=== PATIENT | female | born 1960 | race American Indian/Alaskan Native ===

== ENCOUNTER 2018-04-19 11:26 | Emergency (ER) | payer OTHER ==
[2018-04-19] MEDS ORDERED: MAGNESIUM SULFATE 2GM/50ML 2 GM/50 ML BAG IV ONE (11:33)
[2018-04-19] MEDS ORDERED: ATROVENT IH ONE ×2 (11:35→13:21)
[2018-04-19] MEDS ORDERED: PROVENTIL IH ONE ×2 (11:35→13:21)
[2018-04-19] MEDS ORDERED: ZOFRAN IV ONE (11:37)
[2018-04-19] MEDS ORDERED: SUBLIMAZE IV ONE (11:37)
--- NOTE | 2018-04-19 11:40 | Emergency Department Report ---
HPI - General Chief Complaint: Dyspnea/Respdistress Time Seen by Provider: 04/19/18 11:32 - HPI HPI: Room 22 The patient is a 57-year-old female presenting with a chief complaint of chest pain and shortness of breath. The patient she was pain home for 2 hours which believes the fumes exacerbated her asthma. The patient states she became short of breath and developed chest tightness. The patient admits to nausea but denies vomiting. The patient gives her pain a score of 10/10 Location: Lungs, chest Duration: Just prior to arrival Quality: Tightness/shortness of breath Severity: 10/10 Modifying factors: [see above] Context: [see above] Mode of transportation: [not driving] ED Past Medical Hx - Past Medical History Previous Medical History?: Yes Hx Hypertension: Yes Hx Asthma: Yes - Surgical History Past Surgical History?: Yes Additional Surgical History: Brain surgery- Cerebral aneurysm repair - Family History Family history: no significant - Social History Smoking Status: Never Smoker Substance Use Type: None - Medications Home Medications: Home Medications Medication Instructions Recorded Confirmed Last Taken Type Cyclobenzaprine [Flexeril] 10 mg PO TID PRN #15 tablet 02/15/14 Unknown Rx HYDROcodone/APAP 5-325 [[place] 1 each PO Q6HR PRN #12 tablet 02/15/14 Unknown Rx 5/325 mg] ALBUTEROL Inhaler [Proair] 2 puff IH QID PRN #1 inhalation 04/19/18 Unknown Rx Prednisone [predniSONE 10 mg 10 mg PO .TAPER #1 tab.ds.pk 04/19/18 Unknown Rx (6-Day Pack, 21 Tabs)] ED Review of Systems ROS: Stated complaint: DIFFICULTY BREATHING Other details as noted in HPI Constitutional: diaphoresis Respiratory: shortness of breath Cardiovascular: chest pain Gastrointestinal: nausea. denies: vomiting Physical Exam - Physical Exam Vital Signs: Vital Signs 04/19/18 11:29 Pulse Rate 108 H Respiratory 24 Rate Blood Pressure 158/100 O2 Sat by Pulse 87 Oximetry Physical Exam: GENERAL: The patient is well-developed well-nourished female sitting on stretcher appearing to be in moderate discomfort. [] HEENT: Normocephalic. Atraumatic. Extraocular motions are intact. Patient has moist mucous membranes. NECK: Supple. Trachea midline CHEST/LUNGS: Diminished breath sounds throughout. There is no respiratory distress noted. HEART/CARDIOVASCULAR: Regular. There is tachycardia. There is no gallop rub or murmur. ABDOMEN: Abdomen is soft, nontender. Patient has normal bowel sounds. There is no abdominal distention. SKIN: There is no rash. There is no edema. There is no diaphoresis. NEURO: The patient is awake, alert, and oriented. The patient is cooperative. The patient has normal speech MUSCULOSKELETAL: There is no evidence of acute injury. ED Course Vital Signs 04/19/18 11:29 Pulse Rate 108 H Respiratory 24 Rate Blood Pressure 158/100 O2 Sat by Pulse 87 Oximetry - Reevaluation(s) Reevaluation #1: 04/19/18 11:56 Patient states she is feeling slightly improved after medication. But continues to have chest tightness 04/19/18 13:10 Patient states she feels much improved. Patient currently asymptomatic. Lungs clear to auscultation bilaterally with good air movement. Will assess room air SPO2 Reevaluation #2: 04/19/18 14:03 Per nursing patient asymptomatic. Sats 95-97% on room air, respiratory rate 13 breaths per minute ED Medical Decision Making - Lab Data Result diagrams: 04/19/18 11:38 04/19/18 11:38 Laboratory Tests 04/19/18 04/19/18 04/19/18 11:38 11:38 11:38 WBC 7.5 RBC 5.47 H Hgb 14.2 Hct 41.8 MCV 76 L MCH 26 L MCHC 34 RDW 15.0 Plt Count 313 Lymph % (Auto) 27.5 [place] % (Auto) 7.1 Eos % (Auto) 3.3 Baso % (Auto) 1.2 Lymph # 2.0 [place] # 0.5 Eos # 0.2 Baso # 0.1 Seg Neutrophils % 60.9 Seg Neutrophils # 4.5 PT 12.6 INR 0.90 APTT 26.5 Sodium 142 Potassium 3.9 Chloride 104.8 Carbon Dioxide 22 Anion Gap 19 BUN 19 H Creatinine 1.2 Estimated GFR 56 BUN/Creatinine Ratio 16 Glucose 136 H Calcium 9.2 Total Creatine Kinase 213 H CK-MB (CK-2) 2.6 CK-MB (CK-2) Rel Index 1.2 Troponin T < 0.010 NT-Pro-B Natriuret Pep 119.3 - EKG Data -: EKG Interpreted by Me EKG shows normal: sinus rhythm Rate: tachycardia (107 bpm) - EKG Data When compared to previous EKG there are: previous EKG unavailable Interpretation: other (no ischemic changes seen) - Radiology Data Radiology results: image reviewed (chest x-ray) interpreted by me: Chest x-ray-no focal infiltrates, no pneumothorax. Torturous aorta - Differential Diagnosis acute asthma exacerbation, ACS, PE, pericarditis, GERD, pneumonitis Critical care attestation.: If time is entered above; I have spent that time in minutes in the direct care of this critically ill patient, excluding procedure time. ED Disposition Clinical Impression: Shortness of breath, Acute asthma exacerbation Disposition: - TO HOME OR SELFCARE Is pt being admited?: No Does the pt Need Aspirin: No Condition: Stable Instructions: Asthma (ED) Additional Instructions: Return to the emergency department immediately should you develop worsening symptoms, fever, inability to tolerate food or liquid or any other concerns. Prescriptions: ALBUTEROL Inhaler [Proair] 2 puff IH QID PRN #1 inhalation PRN Reason: Shortness Of Breath Prednisone [predniSONE 10 mg (6-Day Pack, 21 Tabs)] 10 mg PO .TAPER #1 tab.ds.pk Referrals: PRIMARY CARE, [Primary Care Provider] - 3-5 Days JOSEY DAVID MD [Staff Physician] - 3-5 Days (Dr David is a sensor operator. Please follow up with him or your own sensor operator for further evaluation) Time of Disposition: 14:05
[2018-04-19 11:55] LABS: Basophils # (Auto) 0.1 K/mm3 (0.0-0.1); Basophils % (Auto) 1.2 % (0.0-1.8); Eosinophils # (Auto) 0.2 K/mm3 (0.0-0.4); Eosinophils % (Auto) 3.3 % (0.0-4.3); Hematocrit 41.8 % (30.3-42.9); Hemoglobin 14.2 gm/dl (10.1-14.3); Lymphocytes % (Auto) 27.5 % (13.4-35.0); Mean Corpuscular HGB Conc 34 % (30-34); Mean Corpuscular Volume 76 fl (79-97); Monocytes # (Auto) 0.5 K/mm3 (0.0-0.8); Monocytes % (Auto) 7.1 % (0.0-7.3); Platelet Count 313 K/mm3 (140-440); Red Blood Count 5.47 M/mm3 (3.65-5.03)
[2018-04-19 11:58] LABS: Mean Corpuscular Hemoglobin 26 pg (28-32)
[2018-04-19 12:08] LABS: INR 0.9 (0.87-1.13)
[2018-04-19 12:09] LABS: Creatine Kinase MB 2.6 ng/mL (0.0-4.0); Partial Thromboplastin Time 26.5 Sec. (24.2-36.6)
[2018-04-19 12:10] LABS: BUN/Creatinine Ratio 16; Blood Urea Nitrogen 19 mg/dL (7-17); Calcium 9.2 mg/dL (8.4-10.2); Hemolysis Index 20
--- NOTE | 2018-04-19 12:30 | XRay Report ---
FINAL REPORT EXAM: XR CHEST 1V AP HISTORY: shortness of breath, chest tightness TECHNIQUE: Frontal chest x-ray. PRIORS: None currently available. FINDINGS: Cardiac silhouette is within normal limits. Tortuous aorta. There is no effusion. There is no pneumothorax. There is no consolidation. There are no suspicious osseous lesions. Right central line tip is present within the SVC. IMPRESSION: No acute cardiopulmonary findings.
[2018-04-19 15:14] VITALS: BP 150/89
== END 2018-04-19 14:10 | disposition home or self-care (01) ==
LOC: ED 11:26
DX: J45.901 Unspecified asthma with (acute) exacerbation (principal); I10 Essential (primary) hypertension
CPT/HCPCS: 36415; 71045; 80048; 82550; 82553; 83880; 84484; 85025; 85610; 85730; 93005; 93010; 94640; 96374; 96375; 99285; J2405; J2930; J3010; J3475

== ENCOUNTER 2018-04-19 19:05 | Emergency (ER) | payer OTHER ==
[2018-04-19 19:33] LABS: Hematocrit 39.5 % (30.3-42.9); Hemoglobin 13.1 gm/dl (10.1-14.3); Mean Corpuscular HGB Conc 33 % (30-34); Mean Corpuscular Volume 77 fl (79-97); Platelet Count 311 K/mm3 (140-440); Red Blood Count 5.15 M/mm3 (3.65-5.03); Red Cell Distribution Width 14.8 % (13.2-15.2)
[2018-04-19 19:34] LABS: Mean Corpuscular Hemoglobin 26 pg (28-32)
[2018-04-19 19:38] LABS: Calcium 8.7 mg/dL (8.4-10.2)
[2018-04-19 22:01] VITALS: BP 146/90
--- NOTE | 2018-04-19 22:14 | Emergency Department Report ---
ED Animal Bite HPI - General Chief Complaint: Allergic Reaction Stated Complaint: CRAMPS Time Seen by Provider: 04/19/18 21:44 Source: patient Mode of arrival: Ambulatory Limitations: No Limitations - History of Present Illness Initial Comments: Ms paige is a 57 year-old woman who presents with concern for insect bite. Was seen here this morning after reported smoke exposure adn treated for asthma exacerbation. no note of an insect bite in previous records. Complains of being bit by an insect in her neck yesterday, but has area of redness and pain in her right lower leg. No fever. Thinks her "fingers are sticking together." feels diffuse myalgias/muscle cramps. Did not see what bit her. no cough, normal PO, no pain with urination. MD Complaint: other (insect bite) -: Gradual Location: neck, other (leg) Right: Leg Animal: other (insect) Animal Control Notified: No Mechanism: bite Associated Symptoms: erythema - Related Data Previous Rx's Medication Instructions Recorded Last Taken Type Cyclobenzaprine [Flexeril] 10 mg PO TID PRN #15 tablet 02/15/14 Unknown Rx HYDROcodone/APAP 5-325 [[place] 1 each PO Q6HR PRN #12 tablet 02/15/14 Unknown Rx 5/325 mg] ALBUTEROL Inhaler [Proair] 2 puff IH QID PRN #1 inhalation 04/19/18 Unknown Rx Cephalexin [Keflex] 500 mg PO Q12HR #14 cap 04/19/18 Unknown Rx Prednisone [predniSONE 10 mg 10 mg PO .TAPER #1 tab.ds.pk 04/19/18 Unknown Rx (6-Day Pack, 21 Tabs)] Allergies Allergy/AdvReac Type Severity Reaction Status Date / Time No Known Allergies Allergy Unverified 02/15/14 09:46 ED Review of Systems ROS: Stated complaint: CRAMPS Other details as noted in HPI Comment: All other systems reviewed and negative ED Past Medical Hx - Past Medical History Hx Hypertension: Yes Hx Asthma: Yes - Surgical History Additional Surgical History: Brain surgery- Cerebral aneurysm repair - Social History Smoking Status: Never Smoker Substance Use Type: None - Medications Home Medications: Home Medications Medication Instructions Recorded Confirmed Last Taken Type Cyclobenzaprine [Flexeril] 10 mg PO TID PRN #15 tablet 02/15/14 Unknown Rx HYDROcodone/APAP 5-325 [[place] 1 each PO Q6HR PRN #12 tablet 02/15/14 Unknown Rx 5/325 mg] ALBUTEROL Inhaler [Proair] 2 puff IH QID PRN #1 inhalation 04/19/18 Unknown Rx Cephalexin [Keflex] 500 mg PO Q12HR #14 cap 04/19/18 Unknown Rx Prednisone [predniSONE 10 mg 10 mg PO .TAPER #1 tab.ds.pk 04/19/18 Unknown Rx (6-Day Pack, 21 Tabs)] ED Physical Exam - General Limitations: No Limitations General appearance: alert, in no apparent distress - Head Head exam: Present: atraumatic, normocephalic - Eye Eye exam: Present: normal appearance. Absent: scleral icterus, conjunctival injection - ENT ENT exam: Present: normal exam, mucous membranes moist - Neck Neck exam: Present: normal inspection, other (no visible rash, insect bite) - Respiratory Respiratory exam: Present: normal lung sounds bilaterally. Absent: respiratory distress, wheezes, rales - Cardiovascular Cardiovascular Exam: Present: regular rate, normal rhythm. Absent: systolic murmur, diastolic murmur, rubs, gallop - GI/Abdominal GI/Abdominal exam: Present: soft. Absent: distended, tenderness - Extremities Exam Extremities exam: Present: normal inspection, normal capillary refill. Absent: pedal edema - Back Exam Back exam: Present: normal inspection - Neurological Exam Neurological exam: Present: alert, oriented X3 - Psychiatric Psychiatric exam: Present: normal affect, normal mood - Skin Skin exam: Present: warm, dry, intact, rash, other (Right lower leg with 4x4cm area of erythema/warmth. no induration, no fluctuance) ED Course Vital Signs 04/19/18 04/19/18 04/19/18 19:11 22:00 22:48 Temperature 97.7 F Pulse Rate 99 H 88 Respiratory 20 20 20 Rate Blood Pressure 160/91 Blood Pressure 146/90 [Left] O2 Sat by Pulse 97 96 96 Oximetry Critical care attestation.: If time is entered above; I have spent that time in minutes in the direct care of this critically ill patient, excluding procedure time. ED Disposition Clinical Impression: Cellulitis Qualifiers: Site of cellulitis: extremity Site of cellulitis of extremity: lower extremity Laterality: right Qualified Code(s): L03.115 - Cellulitis of right lower limb Disposition: DC-01 TO HOME OR SELFCARE Is pt being admited?: No Condition: Stable Instructions: Cellulitis (ED) Prescriptions: Cephalexin [Keflex] 500 mg PO Q12HR #14 cap Referrals: EMEKA BENITO MD [Primary Care Provider] - 3-5 Days Medical Decision Making - Review of Prior Medical Records Reviewed prior Medical Records: Yes - Lab Data Result Diagrams: 04/19/18 19:18 04/19/18 19:18 Labs: 04/19/18 22:14 Lab Results 04/19/18 04/19/18 Range/Units 19:18 19:18 WBC 14.0 H (4.5-11.0) K/mm3 RBC 5.15 H (3.65-5.03) M/mm3 Hgb 13.1 (10.1-14.3) gm/dl Hct 39.5 (30.3-42.9) % MCV 77 L (79-97) fl MCH 26 L (28-32) pg MCHC 33 (30-34) % RDW 14.8 (13.2-15.2) % Plt Count 311 (140-440) K/mm3 Sodium 135 L (137-145) mmol/L Potassium 4.1 (3.6-5.0) mmol/L Chloride 98.4 (98-107) mmol/L Carbon Dioxide 18 L (22-30) mmol/L Anion Gap 23 mmol/L BUN 17 (7-17) mg/dL Creatinine 1.4 H (0.7-1.2) mg/dL Estimated GFR 47 ml/min BUN/Creatinine Ratio 12 % Glucose 222 H (65-100) mg/dL Calcium 8.7 (8.4-10.2) mg/dL Magnesium 2.40 H (1.7-2.3) mg/dL - Decision Making Attributes Decision statement: 04/19/18 22:15 Ms paige is a 57 year-old woman who presents after reported insect bite. Did nto see insect, thinks she was bit on the neck. No more trouble breathing after this mornings visit. Was given steroids this morning. RLE with what appears to be area of cellulitis. Lungs clear, no oral swelling. No visible neck rash/ insect bite. Labs with doubling of WBC since this morning, but has been started on prednisone. Suspect this RLE rash is cellulitis, will start keflex. Giving NSAID for presumed myalgias. Fingers are not stuck together, able to spread fingers without trouble. Safe for dc to home with care instruction, return precautions. pcp follow-up as needed.
[2018-04-19] MEDS ORDERED: KEFLEX PO ONE (22:17)
[2018-04-19] MEDS ORDERED: MOTRIN PO ONE (22:17)
== END 2018-04-19 23:01 | disposition home or self-care (01) ==
LOC: ED 19:05
DX: L03.115 Cellulitis of right lower limb (principal); I10 Essential (primary) hypertension; J45.901 Unspecified asthma with (acute) exacerbation
CPT/HCPCS: 36415; 80048; 83735; 85027; 99283